=== PATIENT | female | born 1995 | race African-American/Black ===

== ENCOUNTER 2022-10-09 15:12 | Emergency (ER) | payer OTHER ==
[~2022-10-09] VITALS: Ht 172.7 cm; Wt 74.8 kg
--- NOTE | 2022-10-09 17:23 | NUR ---
Cast shoe placed on pt's right foot, crutches given and instruction provided, pt demonstrated usage. Gave pt d/c instructions, pt verbalized understanding.
== END 2022-10-09 17:53 | disposition home or self-care (01) ==
LOC: ER 15:12
DX: M79.671 Pain in right foot (principal); W18.40XA Slipping, tripping and stumbling without falling, unspecified, initial encounter; Y92.89 Other specified places as the place of occurrence of the external cause
CPT/HCPCS: 73630; A4663